=== PATIENT | female | born 1990 | race African-American/Black ===

== ENCOUNTER 2018-03-12 13:43 | Observation (INO) | payer MEDICAID ==
[~2018-03-12 13:43] MED LIST: IBUP-1636 PO
[2018-03-12] MEDS ORDERED: ACETAMINOPHEN 500MG TABLET PO ONE (14:30)
[2018-03-12] MEDS ORDERED: PREN1TAB33 PO (15:08)
== END 2018-03-12 15:30 | disposition home or self-care (01) ==
LOC: L&D 13:43
PROVIDERS: ADMIT Obstetrics & Gynecology; ATTEND Obstetrics & Gynecology
DX: O26.893 Other specified pregnancy related conditions, third trimester (principal); R51 Headache; Z3A.30 30 weeks gestation of pregnancy
CPT/HCPCS: 99281; G0378